=== PATIENT | female | born 1995 | race Caucasian/White ===

== ENCOUNTER 2018-01-07 12:31 | Inpatient (IN) | payer OTHER, MEDICAID ==
[~2018-01-07] VITALS: Ht 160 cm; Wt 68.2 kg
[2018-01-07 12:48] VITALS: BP 124/69
[2018-01-07] MEDS ORDERED: FENTANYL PF 100 MCG/2ML ONE (13:34)
[2018-01-07] MEDS ORDERED: LACTATED RINGERS 1,000 ML IVBOLUS ONE (14:00)
[2018-01-07] MEDS ORDERED: PLEASE ENTER ALLERGIES MC SCH (14:00)
[2018-01-07] MEDS ORDERED: FENTANYL PF 100 MCG/2ML IV ONE (14:00)
[2018-01-07] MEDS ORDERED: OXYTOCIN 30U/ 0.9% NaCL 500ML 500 ML IV PRN (14:31)
[2018-01-07] MEDS ORDERED: OXYTOCIN 30U/ 0.9% NaCL 500ML 500 ML IV ONE (14:31)
[2018-01-07] MEDS ORDERED: D5%-LACTATED RINGERS 1,000 ML IV SCH (14:31)
[2018-01-07] MEDS: LACTATED RINGERS 1,000 ML IV SCH (14:39)
[2018-01-07 15:00] LABS: BASOPHILS # (AUTO) 0.01 x10^3/uL (0-0.1); BASOPHILS % (AUTO) 0 % (0-1); EOSINOPHILS # (AUTO) 0.01 x10^3/uL (0-0.4); EOSINOPHILS % (AUTO) 0 % (1-7); LYMPHOCYTES # (AUTO) 0.67 x10^3/uL (1-3.4); LYMPHOCYTES % (AUTO) 4 % (22-44); MD NO; MEAN CORPUSCULAR HEMOGLOBIN 32.7 pg (27.0-34.8); MEAN CORPUSCULAR HGB CONC 33.7 g/dL (32.4-35.8); MEAN CORPUSCULAR VOLUME 96.9 fL (80-100); MEAN PLATELET VOLUME 9.2 fL (7.4-10.4); MONOCYTES # (AUTO) 0.36 x10^3/uL (0.2-0.8); MONOCYTES % (AUTO) 2 % (2-9); NEUTROPHILS # (AUTO) 16.17 x10^3/uL (1.8-6.8); NEUTROPHILS % (AUTO) 94 % (42-75); PLATELET COUNT 165 x10^3/uL (130-400); RED BLOOD COUNT 3.99 x10^6/uL (3.82-5.3); RED CELL DISTRIBUTION WIDTH 13.8 % (9.6-15.2)
[2018-01-07] MEDS ORDERED: ONDANSETRON 2MG/ML, 2ML IVPush PRN (15:00)
[2018-01-07] MEDS ORDERED: ALUMINUM/MAG/SIMETHICONE 30 ML UDC PO PRN (15:00)
[2018-01-07] MEDS ORDERED: SODIUM CITRATE/CITRIC ACID 30 ML UDC PO PRN (15:00)
[2018-01-07] MEDS ORDERED: FENTANYL PF 100 MCG/2ML IVPush PRN (15:00)
[2018-01-07] MEDS ORDERED: CALCIUM CARBONATE 500 MG TAB.CHEW PO PRN (15:00)
[2018-01-07] MEDS ORDERED: FENTANYL/BUPIV./NS/PF 250 ML EPIDCONT SCH ×2 (15:02→16:35)
[2018-01-07 15:09] VITALS: BP 124/69
[2018-01-07] MEDS ORDERED: FENTANYL PF 500 MCG, BUPIVACAINE/PF 0.5%, 30ML 62.5 ML in SODIUM CHLORIDE 0.9% 177.5 ML EPIDCONT SCH ×2 (15:30)
[2018-01-07] MEDS ORDERED: BUPIVACAINE 0.25% ONE (16:00)
[2018-01-07 16:05] LABS: AMPHETAMINE SCREEN, URINE Negative (Negative); BARBITURATE SCREEN, URINE Negative (Negative); BENZODIAZEPINE SCREEN, URINE Negative (Negative); CANNABINOID SCREEN, URINE Negative (Negative); COCAINE SCREEN, URINE Negative (Negative); METHADONE SCREEN, URINE Negative (Negative); OPIATE SCREEN, URINE Negative (Negative)
[2018-01-07] MEDS ORDERED: LACTATED RINGERS 1,000 ML IV SCH (16:35)
[2018-01-07] MEDS ORDERED: NALOXONE 0.4 MG/ML, 1ML IVPush PRN (17:00)
[2018-01-07] MEDS ORDERED: EPHEDRINE 50 MG/ML, 1ML IVPush PRN (17:00)
[2018-01-07] MEDS ORDERED: LACTATED RINGERS 1,000 ML IVBOLUS PRN (17:00)
[2018-01-07] MEDS ORDERED: NEWBORN KIT ONE (17:51)
[2018-01-07] MEDS ORDERED: OXYTOCIN 30U/ 0.9% NaCL 500ML 500 ML ONE (17:52)
[2018-01-07] MEDS ORDERED: SODIUM CITRATE/CITRIC ACID 30 ML UDC ONE (19:13)
[2018-01-07] MEDS ORDERED: METOCLOPRAMIDE 5 MG/ML, 2ML ONE (19:13)
[2018-01-07] MEDS ORDERED: CALCIUM CARBONATE 500 MG TAB.CHEW ONE (20:29)
[2018-01-07] MEDS ORDERED: METOCLOPRAMIDE 5 MG/ML, 2ML IVPush ONE (20:30)
[2018-01-07] MEDS: CALCIUM CARBONATE 500 MG TAB.CHEW PO PRN (20:31)
[2018-01-07] MEDS ORDERED: ONDANSETRON ODT 4 MG ONE (22:33)
[2018-01-07] MEDS ORDERED: ONDANSETRON ODT 4 MG PO PRN (23:00)
[2018-01-08] MEDS ORDERED: OXYTOCIN 30U/ 0.9% NaCL 500ML 500 ML IV PRN (01:19)
[2018-01-08] MEDS ORDERED: TERBUTALINE 1 MG/ML, 1ML ONE (01:58)
[2018-01-08] MEDS: LACTATED RINGERS 1,000 ML IV SCH ×7 (02:09→23:05)
[2018-01-08] MEDS ORDERED: TERBUTALINE 1 MG/ML, 1ML SQ ONE (02:30)
[2018-01-08] MEDS ORDERED: CALCIUM CARBONATE 500 MG TAB.CHEW ONE (04:14)
[2018-01-08] MEDS: CALCIUM CARBONATE 500 MG TAB.CHEW PO PRN (04:16)
[2018-01-08] MEDS ORDERED: FENTANYL PF 100 MCG/2ML ONE ×2 (05:48→06:29)
[2018-01-08] MEDS ORDERED: CEFAZOLIN 1,000 MG ONE (05:54)
[2018-01-08] MEDS ORDERED: EPHEDRINE 50 MG/ML, 1ML ONE (05:54)
[2018-01-08] MEDS ORDERED: OXYTOCIN 10 UNITS/ML, 1ML ONE (05:54)
[2018-01-08] MEDS ORDERED: NEWBORN KIT ONE (06:31)
[2018-01-08] MEDS ORDERED: CALCIUM CARBONATE 500 MG TAB.CHEW PO PRN (07:30)
[2018-01-08] MEDS ORDERED: SIMETHICONE 80 MG CHEW TAB PO PRN (07:30)
[2018-01-08] MEDS ORDERED: EPHEDRINE 50 MG/ML, 1ML IVPush PRN (07:30)
[2018-01-08] MEDS ORDERED: FENTANYL PF 100 MCG/2ML IV PRN (07:30)
[2018-01-08] MEDS ORDERED: METHYLERGONOVINE 0.2 MG/ML IM PRN (07:30)
[2018-01-08] MEDS ORDERED: ONDANSETRON 2MG/ML, 2ML IV PRN (07:30)
[2018-01-08] MEDS ORDERED: ACETAMINOPHEN 325 MG TABLET PO PRN (07:30)
[2018-01-08] MEDS ORDERED: OXYcodone 5 MG/5 ML ORAL.SOL UDC PO PRN (07:30)
[2018-01-08] MEDS ORDERED: OXYcodone IR 5MG TABLET PO PRN (07:30)
[2018-01-08] MEDS ORDERED: CARBOPROST TROMETHAMINE 250 MCG/ML, 1ML IM PRN (07:30)
[2018-01-08] MEDS ORDERED: ONDANSETRON ODT 8 MG PO PRN (07:30)
[2018-01-08] MEDS ORDERED: OXYcodone 5 MG/5 ML ORAL.SOL UDC ONE (08:09)
[2018-01-08] MEDS ORDERED: morphine SULFATE 10 MG/ML, 1ML ONE (08:09)
[2018-01-08] MEDS: MORPHINE SULFATE 4 MG/ML, 1ML IVPush PRN ×3 (08:15→09:19)
[2018-01-08] MEDS: OXYTOCIN 30U/ 0.9% NaCL 500ML 500 ML IV SCH ×2 (08:28→17:33)
[2018-01-08] MEDS: PRENATAL VIT/IRON/FA 1 EACH TABLET PO SCH (09:00)
[2018-01-08 09:40] VITALS: BP 121/81
[2018-01-08 13:20] VITALS: BP 126/84
[2018-01-08] MEDS: OXYcodone IR 5MG TABLET PO PRN ×2 (13:20→17:29)
[2018-01-08 14:12] LABS: MEAN CORPUSCULAR HEMOGLOBIN 32.5 pg (27.0-34.8); MEAN CORPUSCULAR HGB CONC 33.7 g/dL (32.4-35.8); MEAN CORPUSCULAR VOLUME 96.4 fL (80-100); MEAN PLATELET VOLUME 8.9 fL (7.4-10.4); PLATELET COUNT 126 x10^3/uL (130-400); RED BLOOD COUNT 3.48 x10^6/uL (3.82-5.3); RED CELL DISTRIBUTION WIDTH 13.7 % (9.6-15.2)
[2018-01-08 15:00] LABS: MD YES
[2018-01-08 15:17] LABS: <RBC MORPHOLOGY> NORMAL; BAND#(MANUAL) 3.19 x10^3/uL; BANDS%(MANUAL) 24 % (0-7); LYMPHS% (MANUAL) 6 % (22-44); MONOS#(MANUAL) 0.53 x10^3/uL (0.3-2.7); MONOS% (MANUAL) 4 % (2-9); NRBC % (MANUAL) 1 % (0-1); REACTIVE LYMPHS # (MANUAL) 0.13 x10^3/uL (0-0); REACTIVE LYMPHS % (MANUAL) 1 % (0-0); SEG#(MANUAL) 8.65 x10^3/uL (1.8-6.8); SEGS% (MANUAL) 65 % (42-75)
[2018-01-08 15:18] LABS: <PLATELET ESTIMATE> DECREASED; <PLT MORPHOLOGY> NORMAL PLT MORPH
[2018-01-08 16:16] LABS: MEAN CORPUSCULAR HEMOGLOBIN 32.4 pg (27.0-34.8); MEAN CORPUSCULAR HGB CONC 33.4 g/dL (32.4-35.8); MEAN CORPUSCULAR VOLUME 96.9 fL (80-100); MEAN PLATELET VOLUME 8.8 fL (7.4-10.4); PLATELET COUNT 134 x10^3/uL (130-400); RED BLOOD COUNT 3.38 x10^6/uL (3.82-5.3); RED CELL DISTRIBUTION WIDTH 13.9 % (9.6-15.2)
[2018-01-08 16:19] LABS: MD YES
[2018-01-08 16:27] LABS: INTERNATIONAL NORMALIZED RATIO 1.03 (0.93-1.1); PROTHROMBIN TIME 10.7 Seconds (9.6-11.5)
[2018-01-08] MEDS: KETOROLAC 30 MG/1 ML IV SCH ×2 (16:29→22:08)
[2018-01-08 16:33] VITALS: BP 124/86
[2018-01-08 16:44] LABS: BAND#(MANUAL) 2.36 x10^3/uL; BANDS%(MANUAL) 17 % (0-7); LYMPH#(MANUAL) 1.39 x10^3/uL (1-3.4); LYMPHS% (MANUAL) 10 % (22-44); METAMYELOCYTES# (MANUAL) 0.28 x10^3/uL (0-0); METAMYELOCYTES% (MANUAL) 2 % (0-1); MONOS#(MANUAL) 0.28 x10^3/uL (0.3-2.7); MONOS% (MANUAL) 2 % (2-9); MYELOCYTES# (MANUAL) 0.14 x10^3/uL (0-0); MYELOCYTES% (MANUAL) 1 % (0-0); SEG#(MANUAL) 9.45 x10^3/uL (1.8-6.8); SEGS% (MANUAL) 68 % (42-75)
[2018-01-08 16:45] LABS: <PLATELET ESTIMATE> ADEQUATE; <RBC MORPHOLOGY> NORMAL
[2018-01-08 16:46] LABS: <PLT MORPHOLOGY> NORMAL PLT MORPH
[2018-01-08] MEDS ORDERED: ONDANSETRON 2MG/ML, 2ML ONE (19:22)
[2018-01-08 19:45] VITALS: BP 124/84
[2018-01-09 00:21] VITALS: BP 107/69
[2018-01-09] MEDS: OXYTOCIN 30U/ 0.9% NaCL 500ML 500 ML IV SCH ×3 (03:05→23:05)
[2018-01-09] MEDS: LACTATED RINGERS 1,000 ML IV SCH ×6 (03:05→23:05)
[2018-01-09] MEDS: KETOROLAC 30 MG/1 ML IV SCH ×4 (04:50→22:45)
[2018-01-09 07:48] VITALS: BP 115/78
[2018-01-09] MEDS: PRENATAL VIT/IRON/FA 1 EACH TABLET PO SCH (08:14)
[2018-01-09] MEDS: DOCUSATE 100 MG CAPSULE PO PRN ×2 (08:14→22:47)
[2018-01-09 20:15] VITALS: BP 118/80
[2018-01-09] MEDS ORDERED: DIPH,PERTUSS(ACELL),TET VAC/PF NC IM-VACC ONE ×2 (22:34→23:00)
[2018-01-09] MEDS: MEASLES,MUMPS&RUBELLA VACC/PF 0.5 ML SQ-VACC PRN ×2 (22:46→22:54)
[2018-01-10] MEDS: KETOROLAC 30 MG/1 ML IV SCH ×2 (04:53→10:30)
[2018-01-10] MEDS: LACTATED RINGERS 1,000 ML IV SCH ×2 (07:05→09:05)
[2018-01-10 07:15] VITALS: BP 117/78
[2018-01-10] MEDS: PRENATAL VIT/IRON/FA 1 EACH TABLET PO SCH (08:22)
[2018-01-10] MEDS: DOCUSATE 100 MG CAPSULE PO PRN (08:23)
[2018-01-10] MEDS: OXYTOCIN 30U/ 0.9% NaCL 500ML 500 ML IV SCH (09:05)
[2018-01-10] MEDS: IBUPROFEN 600 MG TABLET PO PRN (16:57)
[2018-01-10 19:30] VITALS: BP 132/77
[2018-01-11] MEDS: IBUPROFEN 600 MG TABLET PO PRN ×2 (01:55→12:40)
[2018-01-11 07:15] VITALS: BP 118/75
[2018-01-11] MEDS: PRENATAL VIT/IRON/FA 1 EACH TABLET PO SCH (09:00)
[2018-01-11] MEDS ORDERED: OXYC-302 PO (10:57)
[2018-01-11] MEDS ORDERED: IBUP-1222 PO (10:58)
== END 2018-01-11 16:48 | disposition home or self-care (01) | DRG 766 ==
LOC: LDOP 12:31 → LDIP 14:31 → 2NW 01-08 09:24
PROVIDERS: ADMIT Obstetrics & Gynecology; ATTEND Obstetrics & Gynecology
PROC: 10D00Z1 Extraction of Products of Conception, Low, Open Approach (ICD-10-PCS; principal; 2018-01-08)
PROC: 10H07YZ Insertion of Other Device into Products of Conception, Via Natural or Artificial Opening (ICD-10-PCS; 2018-01-08)
DX: O76 Abnormality in fetal heart rate and rhythm complicating labor and delivery (principal); Z37.0 Single live birth; Z3A.39 39 weeks gestation of pregnancy; O77.0 Labor and delivery complicated by meconium in amniotic fluid; O62.0 Primary inadequate contractions
CPT/HCPCS: 36415; 80307; 82803; 85025; 85610; 85730; 86850; 86900; 90715; J0690; J1885; J3010; Q0162; J2590; J2765; J3105; J7120; J7121

== ENCOUNTER 2018-12-18 19:08 | Emergency (ER) | payer MEDICAID, OTHER ==
[~2018-12-18] VITALS: Ht 160 cm; Wt 57.6 kg
[~2018-12-18 19:08] MED LIST: IBUP-1222 PO; OXYC-302 PO
[2018-12-18 19:10] VITALS: BP 123/75
[2018-12-18] MEDS ORDERED: KETOROLAC 30 MG/1 ML IM ONE (20:00)
[2018-12-18] MEDS ORDERED: METHOCARBAMOL 750 MG TABLET PO ONE (20:00)
[2018-12-18] MEDS ORDERED: KETOROLAC 30 MG/1 ML ONE (20:13)
[2018-12-18] MEDS ORDERED: METHOCARBAMOL 750 MG TABLET ONE (20:13)
--- NOTE | 2018-12-18 20:19 | NUR ---
MEDICATED PER EMAR
== END 2018-12-18 21:31 | disposition home or self-care (01) ==
LOC: ED 21:10
DX: S29.012A Strain of muscle and tendon of back wall of thorax, initial encounter (principal); S16.1XXA Strain of muscle, fascia and tendon at neck level, initial encounter; M25.562 Pain in left knee; R51 Headache; V49.49XA Driver injured in collision with other motor vehicles in traffic accident, initial encounter; Y93.89 Activity, other specified; Y92.89 Other specified places as the place of occurrence of the external cause; Y99.8 Other external cause status
CPT/HCPCS: 70486; 72072; 72125; 96372; 99284; J1885